=== PATIENT | male | born 1980 | race Caucasian/White ===

== ENCOUNTER 2016-07-13 11:23 | Outpatient (CLI) | payer OTHER ==
[2015-05-15 02:17] VITALS: BP 134/105
[2016-07-13 12:21] LABS: eGFR (African) > 60; eGFR (Non-African) > 60
== END 2016-07-13 11:24 ==
LOC: LAB 11:23
PROVIDERS: ATTEND Family Medicine
DX: E10.9 Type 1 diabetes mellitus without complications (principal)
CPT/HCPCS: 36415; 80053; 82043; 83036